=== PATIENT | female | born 2000 | race American Indian/Alaskan Native ===

== ENCOUNTER 2018-03-08 19:46 | Emergency (ER) | payer OTHER ==
[2018-03-08 19:58] VITALS: BMI 23.4
[2018-03-08 20:02] VITALS: BP 100/65; PULSE 72; RESP 18; TEMP 98; O2SAT 100
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
== END 2018-03-08 21:50 | disposition home or self-care (01) ==
LOC: C.ER 19:46
DX: R51 Headache (principal); V43.62XA Car passenger injured in collision with other type car in traffic accident, initial encounter